=== PATIENT | female | born 1985 | race Caucasian/White ===

== ENCOUNTER 2016-10-12 14:07 | Emergency (ER) | payer SELFPAY, OTHER ==
[2016-10-12 15:44] LABS: BASOPHIL 0.3 % (0-2); EOSINOPHIL 0 % (0-5); HGB 13.5 g/dl (12.5-16.0); LYMPHOCYTE 14.7 % (15-48); MCH 28.9 pg (25.0-31.0); MCHC 32.9 g/dL (32.0-36.0); MCV 87.8 fL (78.0-100.0); MONOCYTE 3.5 % (0-12); MPV 9.5 fL (6.0-9.5); NEUTROPHIL 81.5 % (41-80); PLT 282 K/uL (150-400); RBC 4.67 M/uL (4.20-5.40); RDW 13.8 % (11.5-14.0); WBC 11.5 K/uL (4.0-10.5)
[2016-10-12 15:58] LABS: ACETAMINOPHEN (TYLENOL) < 5.0 ug/mL (10.0-30.0); ALCOHOL (ETOH) MEDICAL NONE DETECTED; SALICYLATE < 6 ug/mL (0-300)
[2016-10-12 15:59] LABS: ALBUMIN 4.4 g/dL (3.5-5.0); BILIRUBIN - TOTAL 0.4 mg/dL (0.1-1.0); CREATININE 0.7 mg/dL (0.5-1.0); GLOBULIN (CALCULATION) 3.3 g/dL (2.2-4.2); POTASSIUM 3.8 mmol/L (3.5-5.1); TOTAL PROTEIN 7.7 g/dL (6.4-8.3)
[2016-10-12 16:21] LABS: BILIRUBIN NEGATIVE (NEGATIVE); BLOOD NEGATIVE Ery/uL (NEGATIVE); CLARITY CLOUDY (CLEAR); COLOR YELLOW (YELLOW); GLUCOSE (U) NORMAL (NORMAL); KETONE (U) NEGATIVE (NEGATIVE); LEUKOCYTES NEGATIVE Leu/uL (NEGATIVE); NITRITE NEGATIVE (NEGATIVE); PROTEIN 1+ mg/dL (NEGATIVE); UROBILINOGEN 0.2 mg/dL (0.2-1.0); pH 8.5 (5.0-9.0)
[2016-10-12 16:31] LABS: URINARY RBC RARE; URINARY WBC RARE
[2016-10-12 16:37] LABS: AMORPHOUS PHOSPHATE CRYSTALS MODERATE
[2016-10-12 16:38] LABS: AMPHETAMINES NEGATIVE (NEGATIVE); BARBITURATES NEGATIVE (NEGATIVE); BENZODIAZEPINES NEGATIVE (NEGATIVE); COCAINE NEGATIVE (NEGATIVE); MARIJUANA (THC) POSITIVE (NEGATIVE); METHADONE NEGATIVE (NEGATIVE); TRICYCLIC ANTIDEPRESSANT NEGATIVE (NEGATIVE)
== END 2016-10-12 19:00 | disposition other institution (70) ==
LOC: FER 14:07
PROVIDERS: Emergency Medicine
DX: F11.23 Opioid dependence with withdrawal (principal); R19.7 Diarrhea, unspecified; F17.210 Nicotine dependence, cigarettes, uncomplicated
CPT/HCPCS: 36415; 80053; 80305; 81001; 85025; 93005; G0480